=== PATIENT | female | born 1980 | race Caucasian/White ===

== ENCOUNTER 2020-03-28 20:47 | Emergency (ER) | payer MEDICAID ==
[~2020-03-28] VITALS: Ht 157.5 cm; Wt 59.1 kg
[~2020-03-28 20:47] MED LIST: LORA1TAB PO; PHEN-716 PO
[2020-03-28] MEDS ORDERED: glucagon, human recombinant 1mg kit IV ONE (21:15)
[2020-03-28] MEDS ORDERED: ondansetron/PF 4mg/2ml inj IV ONE (21:15)
[2020-03-28] MEDS ORDERED: LORazepam 2 mg/ml vial IV ONE (21:40)
[2020-03-28 22:20] VITALS: BP 131/74
[2020-03-28] MEDS ORDERED: fentaNYL/PF 50MCG/1 ML 2ML syringe ONE (22:24)
[2020-03-28] MEDS ORDERED: MIDAZolam 5mg/5ml vial ONE (22:24)
[2020-03-28] MEDS ORDERED: LIDOcaine Viscous 15ml cup ONE (22:24)
[2020-03-28 23:20] VITALS: BP 106/61
[2020-03-28 23:30] VITALS: BP 107/66
[2020-03-28 23:40] VITALS: BP 107/63
[2020-03-28 23:50] VITALS: BP 111/70
--- NOTE | 2020-03-28 23:50 | NUR ---
PATIENT BACK FROM GI LAB, GI RN VERBALIZED PATIENT HAS BEEN RECOVERED IN GI-LAB, PATIENT AOX4 SLIGHTLY DROWSY AND IS AWAITING RIDE
[2020-03-29 01:01] VITALS: BP 109/84
[2020-03-30] MEDS ORDERED: FLUT16SP2 BOTHNARES (14:47)
[2020-03-30] MEDS ORDERED: LIDO20SO16 PO (14:47)
[2020-03-30] MEDS ORDERED: P-EP-21 PO (14:47)
[2020-03-30] MEDS ORDERED: PANT20TA18 PO (14:47)
== END 2020-03-29 01:26 | disposition home or self-care (01) ==
LOC: ER 20:48
DX: T18.128A Food in esophagus causing other injury, initial encounter (principal); Z90.710 Acquired absence of both cervix and uterus; Y92.89 Other specified places as the place of occurrence of the external cause
CPT/HCPCS: 43247; 70360; 96374; 96375; 99152; 99153; 99285; C1773; J1610; J2060; J2250; J2405; J3010; J7040; A4620

== ENCOUNTER 2020-03-30 12:57 | Emergency (ER) | payer MEDICAID ==
[~2020-03-30] VITALS: Ht 157.5 cm; Wt 58.6 kg
[2020-03-30 13:17] VITALS: BP 126/92
[2020-03-30] MEDS ORDERED: loratadine/pseudoephedrine TAB.SR.12Hour PO STA (14:18)
[2020-03-30] MEDS ORDERED: LIDOcaine Viscous 15ml cup MM PRN (14:20)
[2020-03-30] MEDS ORDERED: mag hydrox/Alum hydrox/simeth 30ml oral suspension PO ONE (14:20)
[2020-03-30] MEDS ORDERED: FLUT16SP2 BOTHNARES (14:47)
[2020-03-30] MEDS ORDERED: LIDO20SO16 PO (14:47)
[2020-03-30] MEDS ORDERED: P-EP-21 PO (14:47)
[2020-03-30] MEDS ORDERED: PANT20TA18 PO (14:47)
== END 2020-03-30 14:54 | disposition home or self-care (01) ==
LOC: ER 12:59
DX: R13.10 Dysphagia, unspecified (principal); Z87.440 Personal history of urinary (tract) infections; Z90.89 Acquired absence of other organs; Z90.710 Acquired absence of both cervix and uterus; Z79.899 Other long term (current) drug therapy
CPT/HCPCS: 99283

== ENCOUNTER 2022-06-12 13:57 | Emergency (ER) | payer MEDICAID, OTHER ==
[~2022-06-12] VITALS: Ht 156.2 cm; Wt 61.4 kg
[~2022-06-12 13:57] MED LIST changes: +FLUT16SP2 BOTHNARES; +LIDO20SO16 PO; +PANT20TA18 PO
[2022-06-12 14:04] VITALS: BP 117/77
[2022-06-12] MEDS ORDERED: ORPH100T2 PO (16:26)
== END 2022-06-12 16:35 | disposition home or self-care (01) ==
LOC: ER 13:57
DX: M54.9 Dorsalgia, unspecified (principal); M54.2 Cervicalgia; Z87.448 Personal history of other diseases of urinary system; Z79.899 Other long term (current) drug therapy; Z90.49 Acquired absence of other specified parts of digestive tract; V98.8XXA Other specified transport accidents, initial encounter; Y93.89 Activity, other specified; Y92.89 Other specified places as the place of occurrence of the external cause; Y99.8 Other external cause status
CPT/HCPCS: 99283

== ENCOUNTER 2022-12-04 14:19 | Emergency (ER) | payer MEDICAID ==
[~2022-12-04] VITALS: Ht 157.5 cm; Wt 59.1 kg
[~2022-12-04 14:19] MED LIST changes: +ORPH100T4 PO
[2022-12-04 14:21] VITALS: BP 130/86
[2022-12-04] MEDS ORDERED: IBUP-1986 PO (14:59)
[2022-12-04] MEDS ORDERED: AMOX500C2 PO (14:59)
== END 2022-12-04 15:06 | disposition home or self-care (01) ==
LOC: ER 14:19
DX: K04.7 Periapical abscess without sinus (principal); Z90.49 Acquired absence of other specified parts of digestive tract; Z79.899 Other long term (current) drug therapy
CPT/HCPCS: 99283